=== PATIENT | male | born 1950 | race African-American/Black ===

== ENCOUNTER 2016-06-29 03:31 | Emergency (ER) | payer OTHER ==
[2016-06-29 04:11] VITALS: BP 109/74; PULSE 80; TEMP 100.7; BMI 25.8
[2016-06-29] MEDS ORDERED: IBUPROFEN 400 MG TABLET (FP) PO ONE ×2 (04:27→04:36)
[2016-06-29] MEDS ORDERED: LIDOCAINE VISCOUS 2% ORAL/TOP 20 ML UNIT-DOSE CUP MM ONE (04:27)
[2016-06-29] MEDS ORDERED: LORATADINE 10 MG TABLET ONE (04:35)
--- NOTE | 2016-06-29 04:44 | PDOC ---
History of Present Illness - General History Source: Patient Exam Limitations: No Limitations - History of Present Illness Initial Comments: 06/29/16 05:58 The patient is a 66 year old male with no significant past medical history who presents to the ED for 3 days of cold-like symptoms. Patient reports generalized body aches, fever, headache and diaphoresis. The patient denies chills, cough, SOB, chest pain, and palpitations. The patient denies abdominal pain, nausea, vomiting, and diarrhea. <Heena Marquis - Last Filed: 06/29/16 05:58> <Octaviano Patrick - Last Filed: 06/29/16 06:13> - General Chief Complaint: Cold Symptoms Stated Complaint: BODY ACHES/FLU LIKE SYMPTOMS Past History <Heena Marquis - Last Filed: 06/29/16 05:58> - Psycho/Social/Smoking Cessation Hx Anxiety: No Suicidal Ideation: No Smoking Status: No Smoking History: Never smoked Have you smoked in the past 12 months: No Number of Cigarettes Smoked Daily: 0 Information on smoking cessation initiated: No Hx Alcohol Use: No Drug/Substance Use Hx: No <Octaviano Patrick - Last Filed: 06/29/16 06:13> - Past Medical History Allergies/Adverse Reactions: Allergies Allergy/AdvReac Type Severity Reaction Status Date / Time No Known Allergies Allergy Verified 06/29/16 04:09 Home Medications: Ambulatory Orders NK [No Known Home Medication] 06/29/16 Review of Systems - Review of Systems Able to Perform ROS?: Yes Comments:: 06/29/16 05:58 GENERAL/CONSTITUTIONAL: +fever, diaphoresis No chills. No weakness. HEAD, EYES, EARS, NOSE AND THROAT: No change in vision. No ear pain or discharge. No sore throat. CARDIOVASCULAR: No chest pain or shortness of breath. RESPIRATORY: No cough, wheezing, or hemoptysis. GASTROINTESTINAL: No nausea, vomiting, diarrhea or constipation. GENITOURINARY: No dysuria, frequency, or change in urination. MUSCULOSKELETAL: +generalized body aches No joint or muscle swelling. No neck or back pain. SKIN: No rash NEUROLOGIC: +headache No vertigo, loss of consciousness, or change in strength/ sensation. ENDOCRINE: No increased thirst. No abnormal weight change. HEMATOLOGIC/LYMPHATIC: No anemia, easy bleeding, or history of blood clots. ALLERGIC/IMMUNOLOGIC: No hives or skin allergy. <Heena Marquis - Last Filed: 06/29/16 05:58> *Physical Exam - Vital Signs Last Vital Signs Temp Pulse Resp BP Pulse Ox 100.7 F H 80 14 109/74 99 06/29/16 04:09 06/29/16 04:09 06/29/16 04:09 06/29/16 04:09 06/29/16 04:09 - Physical Exam Comments: 06/29/16 05:58 GENERAL: Awake, alert, and fully oriented, in no acute distress HEAD: No signs of trauma EYES: PERRLA, EOMI, sclera anicteric, conjunctiva clear ENT: Auricles normal inspection, hearing grossly normal, nares patent, oropharynx clear without exudates. Moist mucosa NECK: Normal ROM, supple, no lymphadenopathy, JVD, or masses LUNGS: Breath sounds equal, clear to auscultation bilaterally. No wheezes, and no crackles HEART: Regular rate and rhythm, normal S1 and S2, no murmurs, rubs or gallops ABDOMEN: Soft, nontender, normoactive bowel sounds. No guarding, no rebound. No masses EXTREMITIES: Normal range of motion, no edema. No clubbing or cyanosis. No cords, erythema, or tenderness NEUROLOGICAL: Cranial nerves II through XII grossly intact. Normal speech, normal gait SKIN: Warm, Dry, normal turgor, no rashes or lesions noted. <Heena Marquis - Last Filed: 06/29/16 05:58> - Vital Signs Last Vital Signs Temp Pulse Resp BP Pulse Ox 100.7 F H 80 14 109/74 99 06/29/16 04:09 06/29/16 04:09 06/29/16 04:09 06/29/16 04:09 06/29/16 04:09 <Octaviano Patrick - Last Filed: 06/29/16 06:13> ED Treatment Course - ADDITIONAL ORDERS Additional order review: 06/29/16 04:44 Influenza Types A,B Antigen (BOYD) - Final Nasopharyngeal Swab - Final - Medications Given in the ED: ED Medications Discontinued Medications Generic Name Dose Route Start Last Admin Trade Name Freq PRN Reason Stop Dose Admin Ibuprofen 800 mg 06/29/16 04:27 06/29/16 04:49 Motrin - PO 06/29/16 04:28 800 mg ONCE ONE Administration Lidocaine HCl 20 ml 06/29/16 04:27 06/29/16 04:35 Xylocaine 2% Viscous Oral - MM 06/29/16 04:28 20 ml ONCE ONE Administration <Heena Marquis - Last Filed: 06/29/16 05:58> Medical Decision Making - Medical Decision Making 06/29/16 06:06 Pt is a 66yo m with no significant PMH other than yearly flu. He presents with concern of having flu again. This is correct; he otherwise looks well and has a negative CXR. Encouraged to follow up with the PMD today and return if there is any change otherwise in symptoms. Aggressive hydration, nutrition as tolerated. <Octaviano Patrick - Last Filed: 06/29/16 06:13> *DC/Admit/Observation/Transfer - Attestations Scribe Attestion: 06/29/16 05:59 Documentation prepared by Heena Marquis, acting as medical editor for Octaviano Patrick MD, MD <Heena Marquis - Last Filed: 06/29/16 05:58> - Discharge Dispostion Admit: No Decision to Admit order Date/Time: 06/29/16 04:31 - Attestations Physician Attestion: 06/29/16 06:06 I, Dr. Octaviano Patrick MD, attest that this document has been prepared under my direction and personally reviewed by me in its entirety. I further attest, that it accurately reflects all work, treatment, procedures and medical decision -making performed by me. <Octaviano Patrick - Last Filed: 06/29/16 06:13> Diagnosis at time of Disposition: Viral syndrome, Influenza B - Discharge Dispostion Disposition: HOME Condition at time of disposition: Good - Referrals Referrals: Lashell Armas MD [Primary Care Provider] - - Patient Instructions Additional Instructions: Please follow up with your PMD within the next 48 hours and if there is any change otherwise in your symptoms, please return immediately to the ED. It is essential for you to aggressively hydrate yourself and nutrition as tolerated. You are Influenza B positive. This will take 7-10 days to improve.
[2016-06-29] MEDS ORDERED: LORATADINE 10 MG TABLET PO SCH (10:00)
== END 2016-06-29 06:57 | disposition home or self-care (01) ==
LOC: JER 03:31
DX: J10.1 Influenza due to other identified influenza virus with other respiratory manifestations (principal)
CPT/HCPCS: 71020-TC; 87804; 99281-25

== ENCOUNTER 2016-10-18 07:31 | Emergency (ER) | payer OTHER ==
[2016-10-18 07:45] VITALS: BMI 25.8
--- NOTE | 2016-10-18 07:52 | PDOC ---
History of Present Illness - General Chief Complaint: Choking Sensation Stated Complaint: SHORTNESS OF BREATH Time Seen by Provider: 10/18/16 07:49 - History of Present Illness Initial Comments: 66 year old male with history of remote traumatic pneumothorax without other medical history presenting with cough for the past three weeks and recent episode of choking that woke him up out of his bed. He describes his cough as productive of clear sputum for which he was treated by his PCP (Dr. Armas) with two courses of antibiotics and eventually Claritin which he admits helped his symptoms. He says that he stopped taking the Claritin to see if his symptoms would go away on their own but they returned so he came to the ED to be reevaluated. Denies fevers, chills, nausea, vomiting, diarrhea, chest pain, or other sick symptoms. 10/18/16 08:08 10/18/16 09:14 Past History - Past Medical History Allergies/Adverse Reactions: Allergies Allergy/AdvReac Type Severity Reaction Status Date / Time No Known Allergies Allergy Verified 10/18/16 07:42 Home Medications: Ambulatory Orders NK [No Known Home Medication] 06/29/16 Other medical history: denies - Surgical History Lung Surgery: Yes (? "glued it to my chest") - Immunization History Immunization Up to Date: Yes - Psycho/Social/Smoking Cessation Hx Anxiety: No Suicidal Ideation: No Smoking Status: No Smoking History: Never smoked Have you smoked in the past 12 months: No Number of Cigarettes Smoked Daily: 0 Hx Alcohol Use: No Drug/Substance Use Hx: No Review of Systems - Review of Systems Constitutional: No: Chills, Diaphoresis, Fever, Loss of Appetite HEENTM: No: Tearing, Recent change in vision, Double Vision Respiratory: Yes: Cough, Productive cough. No: Shortness of Breath, SOB with Exertion, SOB at Rest, Wheezing, Hemoptysis Cardiac (ROS): No: Chest Pain, Edema, Lightheadedness, Palpitations ABD/GI: No: Constipated, Diarrhea, Nausea, Poor Appetite, Vomiting : No: Burning, Frequency Musculoskeletal: No: Muscle Pain, Muscle Weakness Integumentary: No: Erythema, Lesions, Rash Neurological: No: Headache *Physical Exam - Vital Signs Last Vital Signs Temp Pulse Resp BP Pulse Ox 98.0 F 75 18 111/45 98 10/18/16 07:42 10/18/16 07:42 10/18/16 07:42 10/18/16 07:42 10/18/16 07:42 - Physical Exam General Appearance: Yes: Nourished, Appropriately Dressed. No: Apparent Distress HEENT: positive: EOMI, LESIA, Normal ENT Inspection. negative: Normal Voice ( Raspy voice) Neck: positive: Trachea midline, Normal Thyroid, Supple. negative: Tender, Rigid, Lymphadenopathy (R), Lymphadenopathy (L) Respiratory/Chest: positive: Lungs Clear, Normal Breath Sounds. negative: Chest Tender, Respiratory Distress, Accessory Muscle Use, Labored Respiration, Rapid RR Cardiovascular: positive: Regular Rhythm, Regular Rate, S1, S2. negative: Edema , Murmur, Bradycardia, Tachycardia Gastrointestinal/Abdominal: positive: Normal Bowel Sounds, Flat, Soft. negative : Tender, Organomegaly, Pulsatile Mass Musculoskeletal: positive: Normal Inspection Extremity: positive: Normal Inspection, Normal Range of Motion Integumentary: positive: Normal Color, Dry, Warm Neurologic: positive: title investigator II-XII NML intact, Fully Oriented, Alert Medical Decision Making - Medical Decision Making Healthy 66 year male presenting with cough for three weeks and one episode of choking the night before presentation. Given the patient's self admitted cessation of symptoms with use of his Claritin, this is most likely an allergic rhinitis/ pharyngitis. However, of slight concern is his history of choking occasionally which raises suspicion for an oropharyngeal pathology. Given lack of fever, we will pursue a CXR in isolation to rule out intrapulmonary pathology. 10/18/16 08:57 At approximately 8:[address] Armas regarding the patient and communicated the lack of concerning clinical findings currently. He agrees that the patient needs minimal workup per our assessment and can follow up with him in his office tomorrow. 10/18/16 09:17 10/18/16 09:41 Chest X Ray Returned with some mild blunting of right angle which appears to be there on his film from 4 months prior. We will send him home with tim hernandez and a refill for his Claritin with referral for his PCP and his ENT. 10/18/16 09:42 *DC/Admit/Observation/Transfer Diagnosis at time of Disposition: Cough, Allergy - Discharge Dispostion Admit: No - Referrals Referrals: Lashell Armas MD [Primary Care Provider] - Octaviano Mcgregor MD [Staff Physician] - - Patient Instructions Additional Instructions: You were seen for a cough that previously improved with allergy medications. We believe this is related to your allergies and should get better with more allergy medication. Please see your Dr. Neff tomorrow. On your chest x-ray we saw a little bit of fluid in the bottom of your right lung. Although this fluid shouldn't effect your ability to breath, it should be followed up as this can be the first sign of something more concerning such as cancer. You should also discuss this finding with your PCP tomorrow. We have included information to schedule an appointment with the ENT doctor as well. Please call the ENT clinic today to schedule an appointment within 1 week. We Please return to the ED if you have worsening cough, fevers, chills, or other sick symptoms - Attestations Physician Attestion: I, Dr. Meghan Mcnair, attest that this document has been prepared under my direction and personally reviewed by me in its entirety. I further attest, that it accurately reflects all work, treatment, procedures and medical decision -making performed by me. 10/18/16 09:44 10/18/16 09:46
--- NOTE | 2016-10-18 08:19 | PDOC ---
Attending Attestation - Resident Resident Name: Meghan Mcnair - ED Attending Attestation I have performed the following: I have examined & evaluated the patient, The case was reviewed & discussed with the resident, I agree w/resident's findings & plan, Exceptions are as noted - HPI HPI: 10/18/16 08:15 66yo M hx R lung traumatic ptx 2002 p/w with a cough productive of clear sputum intermittently since June. The patient has seen Dr. Connell for his cough and has completed 2 courses of antibiotics without improvement, however reports improvement when he took Claritin. The patient reports he ran out of Claritin a few weeks ago and his cough returned. Last night while he was sleeping he reports waking up with a coughing fit and was concerned that he could choke. He reports the cough lasted about a minute and then self resolved. Given his history of the pneumothorax he became concerned that the coughing fit would cause injury to his lung which prompted him to present to the ED. He denies any problems eating or drinking on a regular basis. He denies any coughing after he eats or drinks. Denies any fevers, chills. He denies any shortness of breath at rest or exertion. He denies chest pain, nausea, vomiting, diarrhea, abdominal pain, dysuria, rashes. Denies trauma. - Physicial Exam PE: 10/18/16 08:18 GENERAL: Awake, alert, and fully oriented, in no acute distress HEAD: No signs of trauma EYES: PERRLA, EOMI, sclera anicteric, conjunctiva clear ENT: Auricles normal inspection, hearing grossly normal, nares patent, oropharynx clear without exudates. Moist mucosa. Uvula midline. NECK: Normal ROM, supple, no lymphadenopathy, JVD, or masses LUNGS: Breath sounds equal, clear to auscultation bilaterally. No wheezes, and no crackles HEART: Regular rate and rhythm, normal S1 and S2, no murmurs, rubs or gallops ABDOMEN: Soft, nontender, normoactive bowel sounds. No guarding, no rebound. No masses EXTREMITIES: Normal range of motion, no edema. No clubbing or cyanosis. No cords, erythema, or tenderness NEUROLOGICAL: Normal speech, cranial nerves intact, negative pronator drift, 5/ 5 strength in all 4 extremities, normal sensation to light touch in all 4 extremities, normal cerebellar exam, normal gait, normal reflexes and tone SKIN: Warm, Dry, normal turgor, no rashes or lesions noted. Observed patient drinking at the bedside with no coughing afterwards and no other signs of aspiration. - Medical Decision Making 10/18/16 08:46 66-year-old male history of traumatic pneumothorax presents with 4 months of cough that previously improved with allergy medication. Patient presents today due to a coughing fit in the middle of the night and concern that he could have lung injury from how severe the coughing fit was. Patient is asymptomatic otherwise. His exam is unremarkable. Likely a cough associated with postnasal drip. Given normal exam unlikely any injury to the lung from a coughing fit. -CXR -call Dr. Neff -likely DC with claritin 10/18/16 09:53 Chest x-ray with mild blunting of the right costophrenic angle. No evidence of pneumonia or aspiration pneumonitis although chest x-ray may not show any findings. Pt feels well, drank and ate during his stay here with no coughing or signs of aspiration. Dr. Mcnair spoke with Dr. Neff about the case and Dr. Neff requested an ENT consult. Patient was given the number for ENT clinic and will follow-up with Dr. Neff tomorrow. Stable for discharge home with prescription for Claritin.
[2016-10-18 10:36] VITALS: BP 131/71; PULSE 60; TEMP 98.1
== END 2016-10-18 10:36 | disposition home or self-care (01) ==
LOC: JER 07:31
DX: R05 Cough (principal); T78.40XA Allergy, unspecified, initial encounter; Z87.898 Personal history of other specified conditions
CPT/HCPCS: 71020-TC; 99283-25

== ENCOUNTER 2017-07-09 07:31 | Emergency (ER) | payer OTHER ==
[2017-07-09 07:54] VITALS: BP 105/57; PULSE 63; TEMP 98.4; BMI 25.8
[2017-07-09] MEDS ORDERED: KETOROLAC TROMETHAMINE 30 MG/1 ML VIAL IM ONE (07:59)
[2017-07-09] MEDS ORDERED: KETOROLAC TROMETHAMINE 30 MG/1 ML VIAL ONE (08:02)
--- NOTE | 2017-07-09 08:52 | PDOC ---
History of Present Illness - General History Source: Patient Exam Limitations: No Limitations - History of Present Illness Initial Comments: 07/09/17 08:54 The patient is a 67 year old male, with a significant past medical history of R lung traumatic pneumothorax (2002) who presents to the emergency department with R ankle pain for the past 3 months. Patient reports RLE pain at baseline however reports pain is worse and is more frequent. Patient reports pain is localized to the anterior aspect of the R ankle, 5/10 in severity, cramping in nature, exacerbated when walking and alleviated when sitting. Patient denies any recent trauma or fractures. Patient took aspirin for the pain however denies any relief and presents to the ED for further evaluation. Patient denies chest pain, palpitations, diaphoresis, headache or dizziness. Patient denies fever, chills, abdominal pain, nausea, vomit, diarrhea or constipation. Patient denies dysuria, frequency, urgency or hematuria. Patient denies sick contacts or recent travel. Allergies: NKA Past surgical history: hernia repair Social history:denies etoh, smoking, recreational drug use PCP: Dr. Armas <Winnie Sylvester - Last Filed: 07/09/17 08:54> <Ryan Dennis - Last Filed: 07/09/17 11:10> - General Chief Complaint: Pain Stated Complaint: R LEG PAIN Time Seen by Provider: 07/09/17 07:43 Past History <Winnie Sylvester - Last Filed: 07/09/17 08:54> - Past Medical History COPD: No Other medical history: DENIES. - Surgical History Abdominal Surgery: Yes (HERNIA REPAIR) Lung Surgery: Yes ("glued it to my chest") - Immunization History Immunization Up to Date: Yes - Suicide/Smoking/Psychosocial Hx Smoking Status: No Smoking History: Never smoked Have you smoked in the past 12 months: No Number of Cigarettes Smoked Daily: 0 Hx Alcohol Use: No Drug/Substance Use Hx: No <Ryan Dennis - Last Filed: 07/09/17 11:10> - Past Medical History Allergies/Adverse Reactions: Allergies Allergy/AdvReac Type Severity Reaction Status Date / Time No Known Allergies Allergy Verified 07/09/17 07:35 Home Medications: Ambulatory Orders NK [No Known Home Medication] 06/29/16 Review of Systems - Review of Systems Able to Perform ROS?: Yes Comments:: 07/09/17 08:54 A complete review of 10 out of 10 review of systems is taken and is negative apart from what is previously mentioned below and in the HPI. <Winnie Sylvester - Last Filed: 07/09/17 08:54> *Physical Exam - Vital Signs Last Vital Signs Temp Pulse Resp BP Pulse Ox 98.4 F 63 19 105/57 99 07/09/17 07:35 07/09/17 07:35 07/09/17 07:35 07/09/17 07:35 07/09/17 07:35 - Physical Exam Comments: 07/09/17 08:54 Vitals: Triage Vital signs reviewed General Appearance: no acute distress, well nourished well developed, Head: Atraumatic, normocephalic Neck: Supple;No Nuchal rigidity Chest Wall: Nontender Cardiac: Regular rate and rhythm, no murmurs, no rubs, no gallops, Lungs: Clear to auscultation bilateral, good air movement bilaterally, Abdomen: Soft, nondistended, normal bowel sounds, nontender to palpation Extremities: Full range of motion to all extremities, no cyanosis, clubbing, or edema Skin: Warm and dry, no rashes or lesions, no petechiae <Winnie Sylvester - Last Filed: 07/09/17 08:54> - Vital Signs Last Vital Signs Temp Pulse Resp BP Pulse Ox 98.4 F 63 19 105/57 99 07/09/17 07:35 07/09/17 07:35 07/09/17 07:35 07/09/17 07:35 07/09/17 07:35 <Ryan Dennis - Last Filed: 07/09/17 11:10> ED Treatment Course - Medications Given in the ED: ED Medications Discontinued Medications Generic Name Dose Route Start Last Admin Trade Name Freq PRN Reason Stop Dose Admin Ketorolac Tromethamine 30 mg 07/09/17 07:59 07/09/17 08:09 Toradol Injection - IM 07/09/17 08:00 30 mg ONCE ONE Administration <Winnie Sylvester - Last Filed: 07/09/17 08:54> - RADIOLOGY Radiology Studies Ordered: Category Date Time Status ANKLE-RIGHT [RAD] Stat Radiology 07/09/17 08:28 Ordered LEG TIB/FIB-LEFT [RAD] Stat Radiology 07/09/17 07:59 Ordered LEG TIB/FIB-RIGHT [RAD] Stat Radiology 07/09/17 08:28 Ordered DUPLEX ART. LEGS- LIMITED US [US] Stat Ultrasound 07/09/17 07:54 Ordered DUPLEX VASCUL US-1 LEG [US] Stat Ultrasound 07/09/17 07:54 Ordered - Medications Given in the ED: ED Medications Discontinued Medications Generic Name Dose Route Start Last Admin Trade Name Ludivina PRN Reason Stop Dose Admin Ketorolac Tromethamine 30 mg 07/09/17 07:59 07/09/17 08:09 Toradol Injection - IM 07/09/17 08:00 30 mg ONCE ONE Administration <Ryan Dennis - Last Filed: 07/09/17 11:10> Medical Decision Making - Medical Decision Making 07/09/17 10:58 67 years old the past medical history presents to the ED with pain while ambulating to his right ankle. Neurovascularly intact good pulses we'll obtain ultrasound labs and reassess Arterial ultrasound demonstrates no acute pathology venous ultrasound negative for DVT no acute fracture dislocation We'll have patient follow up with orthopedics and vascular surgery as an outpatient We'll recommend cane to help with ambulation Findings, need for follow-up, strict return instructions discussed with patient <Ryan Dennis - Last Filed: 07/09/17 11:10> *DC/Admit/Observation/Transfer - Attestations Scribe Attestion: 07/09/17 08:55 Documentation prepared by Winnie Sylvester, acting as medical practitioners for Ryan Dennis MD <Winnie Sylvester - Last Filed: 07/09/17 08:54> - Discharge Dispostion Admit: No <Ryan Dennis - Last Filed: 07/09/17 11:10> Diagnosis at time of Disposition: Ankle pain Qualifiers: Chronicity: unspecified Laterality: right Qualified Code(s): M25.571 - Pain in right ankle and joints of right foot - Discharge Dispostion Disposition: HOME Condition at time of disposition: Good - Referrals Referrals: Lashell Armas MD [Primary Care Provider] - Brandon Lyle MD [Staff Physician] - Earle Sarah MD [Staff Physician] - - Patient Instructions Additional Instructions: Use cane while ambulating. [id number] Motrin as directed on package. Follow-up with your doctor as well as Dr. Sarah orthopedics Dr. Lyle vascular Return to ED for any severe worsening symptoms like pain chest pain shortness of breath or for any concerns. - Post Discharge Activity Forms/Work/School Notes: Back to Work
== END 2017-07-09 11:25 | disposition home or self-care (01) ==
LOC: JER 07:31
PROC: 3E0233Z Introduction of Anti-inflammatory into Muscle, Percutaneous Approach (ICD-10-PCS; principal; 2017-07-09)
DX: M25.571 Pain in right ankle and joints of right foot (principal)
CPT/HCPCS: 73590-TC-LT-FY; 73590-TC-RT-FY; 73610-TC-RT-FY; 93926-TC; 93971-TC; 99282-25